=== PATIENT | female | born 1980 | race Asian ===

== ENCOUNTER → 2018-02-15 10:29 | Outpatient (CLI) | payer OTHER, SELFPAY ==
--- NOTE | 2018-02-15 10:32 | DI.US.S_ITS ---
PROCEDURE: US OB >= 14 WEEKS FETUS INDICATIONS: anatomy survey OUTSIDE/PRIOR DATING DATA: Last menstrual period (LMP): Unknown. LMP-based estimated date of delivery (LUIS): N./A.. First dating scan (date and location): 12/07/2017. Estimated date of delivery (LUIS) from first dating scan: 07/07/2018. TECHNIQUE: Real-time scanning was performed of the fetus, with image documentation and biometric measurements. Endovaginal scanning: Not required COMPARISON: [facility], , OB COMPLETE LESS THAN 14 WKS, 12/07/2017, 15:50. FINDINGS: General: A single living intrauterine gestation is present. Presentation: Vertex. Placenta: Placental position is anterior, without previa. Amniotic fluid index: 12.9 cm, normal range is 5-24 cm. heart rate: 155 beats per minute. Maternal cervical canal: 3.9 cm long. Normal lower limit is 2.5 cm. biometrics: Biparietal diameter: 19 weeks 4 days Head circumference: 19 weeks 3 days Abdominal circumference: 19 weeks 2 days Femur length: 19 weeks 4 days Estimated gestational age from initial scan: 19 weeks 5 days Composite gestational age from present scan: 19 weeks 3 days, normal growth Estimated weight and percentile: 292 g at the 30th percentile Measurement variability for biometric dating: +/- 7 days from 14 weeks to 15 weeks 6 days gestation, +/- 10 days from 16 weeks to 21 weeks 6 days gestation, +/- 2 weeks from 22 weeks to 27 weeks 6 days gestation, +/- 3 weeks for 28 weeks gestation or later. weight reference: 4500 g or EFW >90/95% is considered macrosomia or large for gestational age. EFW <10% is small for gestational age. EFW 5% or less is considered intra-uterine growth restriction. Anatomic survey: Neuro: Ventricles are non-dilated at less than 10 mm. Cisterna magna is normal at 3-11 mm. Cerebellum is normal in size and morphology. Nuchal skin fold: Normal at less than 6 mm between 14-21 weeks gestational age. Face: Nose and lips, facial profile are normal. Spine: No evidence for spina bifida. Heart: 4-chambered heart is present, with normal ventricular outflow tracts. There is question of dextrocardia. Calcifications are suggested at the level of the mitral annulus. Diaphragm: Diaphragm is intact. Stomach: Left-sided stomach is present. Kidneys: Mild hydronephrosis, 5 mm right and 6 mm left. Normal is less than 5 mm in 2nd trimester, less than 7 mm in 3rd trimester. Cord: 3-vessel cord has orthotopic insertion. Bladder: Normal in size. Extremities: All 4 extremities identified. IMPRESSION: 1. Single, live intrauterine gestation in Vertex lie showing composite gestational age of 19 weeks 3 days, normal growth. 2. Mild bilateral dilatation of the renal pelves, borderline at 5 mm on the right and slightly enlarged at 6 mm on the left. Follow up exam suggested. 3. Question of cardiac anomaly/abnormality for attention on follow up exam. Dictated by: Too Sousa M.D. on 02/15/2018 at 12:34 Approved by: Too Sousa M.D. on 02/15/2018 at 12:44
[2018-02-23 12:41] LABS: AFP, Serum 171.8 ng/mL; Brief History NOT GIVEN; Calc Gestational Age 20; Est Date Determined by US; Maternal Weight 129 lbs; Number of Fetuses 1; Prev Pregnancies Down Syndrome NOT GIVEN
== END ==
PROVIDERS: PCP Physician Assistant; Visit Provider Obstetrics & Gynecology
DX: Z34.92 Encounter for supervision of normal pregnancy, unspecified, second trimester (principal); Z3A.19 19 weeks gestation of pregnancy
CPT/HCPCS: 36415; 76811; 82105

== ENCOUNTER → 2018-03-31 15:31 | Outpatient (CLI) | payer OTHER, SELFPAY ==
[2018-03-31 17:51] LABS: Hematocrit 31.7 % (36-46); Hemoglobin 9.9 g/dL (12.0-16.0)
[2018-03-31 18:11] LABS: GTT (PREG) 1 Hour PP 50gm Dose 143 mg/dL (76-139)
== END ==
PROVIDERS: PCP Physician Assistant; Visit Provider Obstetrics & Gynecology
DX: Z31.82 Encounter for Rh incompatibility status (principal); Z34.82 Encounter for supervision of other normal pregnancy, second trimester
CPT/HCPCS: 82950; 85014; 85018

== ENCOUNTER → 2018-04-05 08:46 | Outpatient (CLI) | payer OTHER, SELFPAY ==
[2018-04-05 10:44] LABS: Glucose Fasting Gestational 74 mg/dL (76-95)
[2018-04-05 11:07] LABS: Glucose 1 Hour Gest 168 mg/dL (76-180)
[2018-04-05 12:16] LABS: Glucose Tol Interp,Gestational INTERPRETATION
[2018-04-05 12:46] LABS: Glucose 2 Hour Gest 145 mg/dL (76-155)
[2018-04-05 13:07] LABS: Glucose 3 Hour Gest 85 mg/dL (76-140)
== END ==
PROVIDERS: Visit Provider Obstetrics & Gynecology
DX: O99.810 Abnormal glucose complicating pregnancy (principal)
CPT/HCPCS: 36415; 82951; 82952

== ENCOUNTER 2018-04-06 22:00 | Outpatient (CLI) | payer OTHER, SELFPAY | END 2018-04-06 23:00 | disposition home or self-care (01) | LOC: LABOR 22:07 → OB 04-08 10:13 | PROVIDERS: PCP Physician Assistant; Visit Provider Obstetrics & Gynecology | DX: O13.2 Gestational [pregnancy-induced] hypertension without significant proteinuria, second trimester (principal); O46.92 Antepartum hemorrhage, unspecified, second trimester; Z3A.27 27 weeks gestation of pregnancy | CPT/HCPCS: G0378; G0379 ==

== ENCOUNTER → 2018-04-08 09:51 | Outpatient (CLI) | payer OTHER, SELFPAY | PROVIDERS: PCP Physician Assistant | DX: R31.9 Hematuria, unspecified (principal) | CPT/HCPCS: 87077; 87086 ==

== ENCOUNTER → 2018-04-08 09:59 | Outpatient (CLI) | payer OTHER, SELFPAY ==
[2018-04-08 10:02] LABS: Bacteria Urine None Seen; RBC Urine None Seen (0-5/HPF)
[2018-04-08 10:34] LABS: Appearance Urine UA CLEAR; Bilirubin Urine UA NEGATIVE (NEGATIVE); Color Urine UA YELLOW; Glucose Urine UA NEGATIVE (Normal); Ketones Urine UA NEGATIVE (NEGATIVE); Leukocyte Esterase Urine UA NEGATIVE (NEGATIVE); Nitrite Urine UA Negative (Negative); Occult Blood Urine UA TRACE-LYSED (Negative); Protein Urine UA 3+ (Negative); Specific Gravity Urine UA 1.015 (1.000-1.035); Urobilinogen Urine UA 0.2 E.U./dL (0.2); pH Urine UA 6.5 (4.5-8.0)
[2018-04-08 10:46] LABS: Culture Indicated Urine Cult Not Indicated; Mucus Urine 2+ (Negative); Squamous Epithelial Cell Urine 5-10 /HPF; WBC Urine 5-10/HPF (0-5/HPF)
== END ==
PROVIDERS: Visit Provider Obstetrics & Gynecology
DX: R31.9 Hematuria, unspecified (principal)
CPT/HCPCS: 81001; 87077; 87086; 87186

== ENCOUNTER 2018-04-11 15:35 | Observation (INO) | payer OTHER, SELFPAY ==
[2018-04-11 16:14] LABS: Add Manual Diff / Slide Review NO; Basophils Percent Auto 0.6 % (0-2); Eosinophils Percent Auto 0.8 % (2-4); Hematocrit 33.3 % (36-46); Hemoglobin 10.9 g/dL (12.0-16.0); Lymphocytes Percent Auto 25.1 % (25-40); Mean Corpuscular HGB Conc 32.6 % (30-36); Mean Corpuscular Hemoglobin 22.1 PG (26-34); Mean Corpuscular Volume 67.8 fL (80-100); Monocytes Percent Auto 4.8 % (3-14); Neutrophils Absolute Auto 7800 /uL (3000-5900); Neutrophils Percent Auto 68.7 % (50-75); Platelet Count 222 X10^3/uL (150-400); Red Blood Cell Count 4.91 X10^6/uL (4.0-5.2); Red Cell Distribution Width 17.3 % (11.6-14.8); White Blood Cell Count 11.4 X10^3/uL (4.5-11.0)
[2018-04-11 16:25] LABS: Alanine Aminotransferase 21 IU/L (9-52); Albumin Globulin Ratio 1.2 (1.0-2.8); Alkaline Phosphatase 137 U/L (38-126); Aspartate Aminotransferase 28 IU/L (14-36); BUN Creatinine Ratio 21.3 (6-22); Bilirubin Total 0.2 mg/dL (0.2-1.3); Blood Urea Nitrogen 17 mg/dL (7-17); Calcium 9.1 mg/dL (8.4-10.2); Carbon Dioxide 21 mmol/L (22-32); Chloride 107 mmol/L (98-107); Estimated Glomerular Filt Rate > 60.0 mL/min (>60); Globulin 2.6 g/dL (1.7-4.1); Glucose 87 mg/dL (70-100); HEMOLYSIS 24 (0-50); Potassium 4.5 mmol/L (3.4-5.1); Sodium 135 mmol/L (137-145); Total Protein 5.6 g/dL (6.3-8.2); Uric Acid 7.7 mg/dL (2.5-6.2)
[2018-04-11 17:15] LABS: Anisocytosis 1+; Hypochromasia 3+; Microcytosis 3+
[2018-04-11] MEDS: LABETALOL 100 MG/20ML MDV 20 MG IV ×3 (17:22→20:30)
--- NOTE | 2018-04-11 17:23 | PM.OBHP.1 ---
OB HPI Date/Time Date of admission: 04/11/18 Date Patient Seen: 04/11/18 Time Patient Seen: 17:23 History of Present Illness Chief complaint: OBSERVATION : 2 Para: 1 Estimated Date of Delivery: 07/06/18 Estimated Gestational Age (weeks): 27 5/7 Narrative: Halina Bynum is a 38 year old female 2 para 1 at 27 and 5 7th weeks gestation who presented to the office for blood pressure check Patient had a urine sent on Wednesday for UA C&S due to some pink tinge in her urine. When the urine returned today, there was 3+ protein in the urine. She came to the office and had a blood pressure of 198/134. She was sent to Labor and delivery for further blood pressure checks, labs, and monitoring. Evaluation Evaluation Baseline heart rate: 145 Variability: Average (6-10) monitor accelerations: Absent monitor decelerations: Variable Category of Tracing: II Laboratory results: Laboratory Tests 04/11/18 04/11/18 16:00 16:00 WBC 11.4 H RBC 4.91 Hgb 10.9 L Hct 33.3 L MCV 67.8 L MCH 22.1 L MCHC 32.6 RDW 17.3 H Plt Count 222 Neut % (Auto) 68.7 Lymph % (Auto) 25.1 [place] % (Auto) 4.8 Eos % (Auto) 0.8 L Baso % (Auto) 0.6 Neut # (Auto) 7800 H RBC Morphology Not Reportable Hypochromasia 3+ H Anisocytosis 1+ H Microcytosis 3+ H Sodium 135 L Potassium 4.5 Chloride 107 Carbon Dioxide 21 L BUN 17 Creatinine 0.80 Estimated GFR > 60.0 BUN/Creatinine Ratio 21.3 Glucose 87 Uric Acid 7.7 H Calcium 9.1 Total Bilirubin 0.2 Conjugated Bilirubin 0.0 Unconjugated Bilirubin 0.0 AST 28 ALT 21 Alkaline Phosphatase 137 H Total Protein 5.6 L Albumin 3.0 L Globulin 2.6 Albumin/Globulin Ratio 1.2 PFSH Medical History Hypertension (Acute) Surgical History No history of previous surgery (Resolved 05/21/16) Family History Mother No problems noted. Father No problems noted. Family/Other No problems noted. Meds Home Medications Medication Instructions Recorded Confirmed Type Gummy 2 ea/day PO DAILY 04/06/18 04/06/18 History Zantac 75 75 mg PO BID 04/06/18 04/06/18 History atenolol [Tenormin] 25 mg PO QDAY 04/06/18 04/06/18 History iron 325 mg PO DAILY 04/06/18 04/06/18 History Review of Systems Review of Systems No headache or blurred vision. Good movement. No vaginal bleeding or leakage of fluid. Exam Vital Signs (past 8 hours): Generally: A well-developed, well-nourished female, no acute distress HEENT: Clear disc margins. Lungs: Clear to auscultation bilaterally Cardiovascular: Regular rate and rhythm Abdomen: Fundal height: 28 cm Extremities: Negative Homans. 3+ DTRs. 1 beat of clonus no edema. Objective Labs Result Diagrams: 04/11/18 16:00 04/11/18 16:00 Labs: Laboratory Results - last 24 hr 04/11/18 04/11/18 16:00 16:00 WBC 11.4 H RBC 4.91 Hgb 10.9 L Hct 33.3 L MCV 67.8 L MCH 22.1 L MCHC 32.6 RDW 17.3 H Plt Count 222 Neut % (Auto) 68.7 Lymph % (Auto) 25.1 [place] % (Auto) 4.8 Eos % (Auto) 0.8 L Baso % (Auto) 0.6 Neut # (Auto) 7800 H RBC Morphology Not Reportable Hypochromasia 3+ H Anisocytosis 1+ H Microcytosis 3+ H Sodium 135 L Potassium 4.5 Chloride 107 Carbon Dioxide 21 L BUN 17 Creatinine 0.80 Estimated GFR > 60.0 BUN/Creatinine Ratio 21.3 Glucose 87 Uric Acid 7.7 H Calcium 9.1 Total Bilirubin 0.2 Conjugated Bilirubin 0.0 Unconjugated Bilirubin 0.0 AST 28 ALT 21 Alkaline Phosphatase 137 H Total Protein 5.6 L Albumin 3.0 L Globulin 2.6 Albumin/Globulin Ratio 1.2 Assessment and Plan (1) 27 weeks gestation of : Current visit: Yes Status: Acute Assessment: 38-year-old 2 para 1 at 27 and 5 7th weeks gestation with hypertension with superimposed preeclampsia Plan: Labetalol 20 mg IV x1 Magnesium sulfate 4 g IV load Magnesium sulfate 2 g maintenance Betamethasone 12 mg IM x1 Wick catheter placed Pulse oximetry Calcium gluconate for transport Discussed with Dr. Verdin at (2) Pre-eclampsia added to pre-existing hypertension: Current visit: Yes Status: Acute
[2018-04-11] MEDS: MAGNESIUM SULFATE 4 GM/100 ML PIGGYBACK IV (17:34)
[2018-04-11] MEDS: BETAMETHASONE 30 MG/5 ML MDV 12 MG IM (17:45)
[2018-04-11] MEDS: LABETALOL 20 MG/4 ML SYRINGE IV (17:53)
[2018-04-11 18:13] VITALS: BP 185/115
[2018-04-11] MEDS: HYDRALAZINE 20 MG/ML VIAL 5 MG IV ×2 (18:29→18:59)
[2018-04-11] MEDS: MAGNESIUM SULFATE 20 GM/500 ML IV.SOLN IV (18:39)
[2018-04-11 20:43] VITALS: BP 185/115; PULSE 108; RESP 18; TEMP 36.6
[2018-04-11 21:49] VITALS: BP 185/115; PULSE 108; RESP 18; TEMP 36.6
== END 2018-04-11 20:43 | disposition home or self-care (01) ==
LOC: LABOR 15:36
PROVIDERS: Admitting Provider Obstetrics & Gynecology; PCP Physician Assistant; Visit Provider Obstetrics & Gynecology
DX: O13.2 Gestational [pregnancy-induced] hypertension without significant proteinuria, second trimester (principal); Z3A.27 27 weeks gestation of pregnancy
CPT/HCPCS: 36415; 59025; 59050; 80053; 80076; 84550; 85025; 96360; 96372; G0378; G0379; J0360; J0702; J3475

== ENCOUNTER 2019-10-05 18:13 | Emergency (ER) | payer OTHER, SELFPAY ==
[2019-10-05 18:22] VITALS: BP 164/119; PULSE 127; RESP 25; TEMP 37; O2SAT 100; BMI 25.2
--- NOTE | 2019-10-05 18:25 | ED_ITS ---
HPI - Chest Pain General Chief Complaint: Chest Pain Stated Complaint: chest pains/ sob Time Seen by Provider: 10/05/19 18:21 Source: patient Mode of arrival: Ambulatory Limitations: no limitations History of Present Illness HPI narrative: 39-year-old female here for evaluation of chest pressure. She states that it started just after noon today. States that was a fairly sudden onset. Some shortness of breath associated with it. Only new exposures that she has been taking diet pills since Wednesday. She does not feel like her heart is beating fast. Her chest pressure is not worse with palpation or movement or breathing. She does have a history of anxiety but feels like that this is not an anxiety attack. Related Data Home Medications Medication Instructions Recorded Confirmed Gummy 2 ea/day PO DAILY 04/06/18 07/14/18 nifedipine 30 mg tablet,extended 30 mg PO BID tab 06/15/18 07/14/18 release Previous Rx's Medication Instructions Recorded hydrocortisone 1 % topical cream 1 applic TOP BID-QID PRN #30 gram 07/14/18 Allergies Allergy/AdvReac Type Severity Reaction Status Date / Time No Known Drug Allergies Allergy Verified 10/05/19 18:25 Review of Systems Constitutional Constitutional: Denies fever(s) and Denies headache(s) ENT Ears, Nose, Mouth, and Throat: Denies headache(s) Cardiovascular Cardiovascular: Reports chest pain, Denies syncope, Denies rapid heart rate, Denies palpitations and Denies dyspnea Respiratory Respiratory: Denies dyspnea Gastrointestinal Gastrointestinal: Denies abdominal pain, Denies nausea and Denies vomiting Genitourinary Genitourinary: Denies dysuria Musculoskeletal Musculoskeletal: Denies myalgias and Denies arthralgias Integumentary/Breasts Skin/Breast: Denies lesions and Denies rash Neurologic Neurologic: Denies behavioral changes, Denies syncope and Denies headache(s) Psychiatric Psychiatric: Denies behavioral changes Endocrine Endocrine: Denies palpitations Hematologic/Lymphatic Hematologic/Lymphatic: Denies easy bleeding and Denies easy bruising Patient History Medical History Hypertension (Acute) Surgical History (Updated 03/15/18 @ 10:58 by Ariadne Sultana) No history of previous surgery (Resolved 05/21/16) Family History Mother No problems noted. Father No problems noted. Family/Other No problems noted. Social History Smoking Status: Never smoker Smoking Status: Never smoker alcohol intake frequency: a few times a week Substance Use Type: does not use Exam Initial Vital Signs Initial Vital Signs: Vital Signs Temperature 98.6 F 10/05/19 18:22 Pulse Rate 127 H 10/05/19 18:22 Respiratory Rate 25 H 10/05/19 18:22 Blood Pressure 164/119 H 10/05/19 18:22 Pulse Oximetry 100 10/05/19 18:22 Const General: cooperative, healthy appearing and comfortable Limitations: mental status not altered HENMT Head: normal to inspection and normocephalic Resp Effort & Inspection: normal respiratory effort Auscultation: clear to auscultation bilaterally Cardio Rate: tachycardic Rhythm: regular rhythm Pulses: radial pulses present GI Inspection: non-distended Palpation: soft and No firm Skin Lesions: no lesions Rashes: no rashes Neuro General: alert, awake and oriented x3 Cognition: normal cognition Speech: speech normal Motor: muscle tone normal throughout Extrem General: normal to inspection and capillary refill normal Psych Appearance: grossly normal and well kempt Scores GCS [place] coma scale eye opening: Spontaneous [place] coma scale verbal response: Orientated Felice coma scale motor response: Obey commands [place] coma scale total score: 15 HEART Score Heart Score history: Slightly Suspicious Heart Score EKG: Normal Heart Score Age: < 45 years old Heart Score risk factors: 1-2 risk factors Heart Score troponin: < or = to normal limit Heart Score Total: 1 PERC Score Age greater than or equal to 50 years: No Heart rate greater than or equal to 100 bpm: Yes Room Air O2 Sat less than 95%: No Unilateral leg swelling: No Recent trauma or surgery: No Hemoptysis: No Prior PE or DVT: No Hormone Use: Yes Total PERC Score: 2 Course Orders Ordered: ED Orders 10/05/19 18:23 XR chest 1V Stat EKG-12 Lead Stat 10/05/19 18:28 B Type Natriuretic Peptide Stat Complete Blood Count AUTO DIFF Stat Comprehensive Metabolic Panel Stat D Dimer Stat Lipase Stat Test Serum,Qual Stat Thyroid Stimulating Hormone Stat Troponin I Stat Discontinued Medications Lorazepam (Ativan) 1 mg IV NOW ONE Stop: 10/05/19 18:46 Last Admin: 01/09/20 18:57 Dose: 1 mg Documented by: ELISE Vital Signs Vital signs: Vital Signs - 8 hr 10/05/19 18:22 10/05/19 19:00 10/05/19 19:10 Temperature 98.6 F Pulse Rate 127 H 112 H 107 H Respiratory Rate 25 H 19 16 Blood Pressure 164/119 H Blood Pressure [Right Arm] 150/114 H Pulse Oximetry 100 100 10/05/19 19:53 Temperature Pulse Rate 110 H Respiratory Rate 20 Blood Pressure Blood Pressure [Right Arm] 162/135 H Pulse Oximetry 99 MDM - Chest Pain Lab Data Attestation: I reviewed the patient's lab results. Result diagrams: 10/05/19 18:28 10/05/19 18:28 Labs: Lab Results 10/05/19 10/05/19 10/05/19 Range/Units 18:28 18:28 18:28 WBC 7.6 (4.5-11.0) X10^3/uL RBC 6.25 H (4.0-5.2) X10^6/uL Hgb 12.9 (12.0-16.0) g/dL Hct 40.2 (36-46) % MCV 64.3 L (80-100) fL MCH 20.6 L (26-34) PG MCHC 32.0 (30-36) % RDW 16.6 H (11.6-14.8) % Plt Count 343 (150-400) X10^3/uL Neut % (Auto) 54.3 (50-75) % Lymph % (Auto) 38.0 (25-40) % [place] % (Auto) 6.4 (3-14) % Eos % (Auto) 0.8 L (2-4) % Baso % (Auto) 0.5 (0-2) % Neut # (Auto) 4200 (9456-1953) /uL Lymph # (Auto) 2900 (1629-1612) /uL [place] # (Auto) 500 (0-900) /uL Eos # (Auto) 100 (0-450) /uL Baso # (Auto) 0 (0-100) /uL RBC Morphology See below Hypochromasia 1+ H Microcytosis 1+ H D-Dimer < 200 (<230) ng/mL Sodium (137-145) mmol/L Potassium (3.4-5.1) mmol/L Chloride (98-107) mmol/L Carbon Dioxide (22-32) mmol/L BUN (7-17) mg/dL Creatinine (0.52-1.04) mg/dL Estimated GFR (>60) mL/min BUN/Creatinine Ratio (6-22) Glucose (70-100) mg/dL Calcium (8.4-10.2) mg/dL Total Bilirubin (0.2-1.3) mg/dL AST (14-36) IU/L ALT (<35) IU/L Alkaline Phosphatase (38-126) U/L Troponin I (0.01-0.034) ng/mL B-Natriuretic Peptide < 100 (<100) Total Protein (6.3-8.2) g/dL Albumin (3.5-5.0) g/dL Globulin (1.7-4.1) g/dL Albumin/Globulin Ratio (1.0-2.8) Lipase (23-300) U/L TSH (0.47-4.68) uIU/mL Serum , Qual (Negative) 10/05/19 10/05/19 10/05/19 Range/Units 18:28 18:28 18:28 WBC (4.5-11.0) X10^3/uL RBC (4.0-5.2) X10^6/uL Hgb (12.0-16.0) g/dL Hct (36-46) % MCV (80-100) fL MCH (26-34) PG MCHC (30-36) % RDW (11.6-14.8) % Plt Count (150-400) X10^3/uL Neut % (Auto) (50-75) % Lymph % (Auto) (25-40) % [place] % (Auto) (3-14) % Eos % (Auto) (2-4) % Baso % (Auto) (0-2) % Neut # (Auto) (0664-1815) /uL Lymph # (Auto) (7731-0016) /uL [place] # (Auto) (0-900) /uL Eos # (Auto) (0-450) /uL Baso # (Auto) (0-100) /uL RBC Morphology Hypochromasia Microcytosis D-Dimer (<230) ng/mL Sodium 138 (137-145) mmol/L Potassium 4.3 (3.4-5.1) mmol/L Chloride 105 (98-107) mmol/L Carbon Dioxide 21 L (22-32) mmol/L BUN 21 H (7-17) mg/dL Creatinine 0.80 (0.52-1.04) mg/dL Estimated GFR > 60.0 (>60) mL/min BUN/Creatinine Ratio 26.3 H (6-22) Glucose 113 H (70-100) mg/dL Calcium 9.9 (8.4-10.2) mg/dL Total Bilirubin 0.4 (0.2-1.3) mg/dL AST 31 (14-36) IU/L ALT 20 (<35) IU/L Alkaline Phosphatase 74 (38-126) U/L Troponin I < 0.012 (0.01-0.034) ng/mL B-Natriuretic Peptide (<100) Total Protein 8.4 H (6.3-8.2) g/dL Albumin 5.0 (3.5-5.0) g/dL Globulin 3.4 (1.7-4.1) g/dL Albumin/Globulin Ratio 1.5 (1.0-2.8) Lipase 245 (23-300) U/L TSH 2.16 (0.47-4.68) uIU/mL Serum , Qual Negative (Negative) Imaging Data Chest x-ray: Radiologist's Impression: [place] [address] XRay Report Signed Patient: Halina Bynum [facility]#: [id number] : 1980Acct:[id number] Age/Sex: 39 / FDate of Service: 10/05/19 Loc: ED Accession Number: [id number] Procedure: XR chest 1V Ordering Provider: Chao Sultana D.O. PROCEDURE: XR CHEST 1V INDICATIONS: chest pain TECHNIQUE: One view of the chest was acquired. COMPARISON: None. FINDINGS: Surgical changes and devices: None. Lungs and pleura: Lungs are clear. No pleural effusions or pneumothorax. Mediastinum: Mediastinal contours appear normal. Heart size is normal. Bones and chest wall: No suspicious bony lesions. Overlying soft tissues appear unremarkable. IMPRESSION: No acute cardiopulmonary disease. Dictated by: Jenna Starr M.D. on 10/05/2019 at 19:18 Approved by: Jenna Starr M.D. on 10/05/2019 at 19:18 ECG Data Attestation: I personally reviewed and interpreted this ECG as follows: Prior ECG tracings: not available for review Interpretation: Sinus tachycardia Ventricular rate 125 Normal QRS Normal QTC Nonspecific ST T wave changes MDM Narrative Medical decision making narrative: EKG is unremarkable, low risk heart score, D- dimer negative, chest x-ray is unremarkable. Low suspicion for ACS. I do suspect that her tachycardia is related to the diet pills she is taking. She seems to be asymptomatic with regard to this. I feel that her heart rate probably has been elevated for the past several days since taking this supplement. I did advise her that she should stop taking this. We will hold on further workup for now. Patient is stable. She was given return precautions and follow-up instructions. She expressed understanding and agreement with plan. Discharge Plan Departure Patient Disposition: Home Clinical Impression: Atypical chest pain, Tachycardia Hypertension Qualifiers: Hypertension type: unspecified Qualified Code(s): I10 - Essential (primary) hypertension Instructions: DI for Atypical Chest Pain Activity Restrictions/Additional Instructions: Continue to take your blood pressure medication. I do recommend that you stop taking the diet pills as this is most likely the cause of your elevated heart rate today. Recommend you contact your primary provider for follow-up. Return to the emergency department for any new or worsening symptoms Prescriptions: No Action hydrocortisone 1 % cream 1 applic TOP BID-QID PRN (Reason: rash) Qty: 30 RF: 0 nifedipine 30 mg tablet extended release 30 mg PO BID RF: 0 Gummy 2 ea/day PO DAILY RF: 0 Referrals: Lynne Pandey ARNP [Primary Care Provider] -
[2019-10-05 18:56] LABS: Add Manual Diff / Slide Review NO; Basophils Absolute Auto 0 /uL (0-100); Basophils Percent Auto 0.5 % (0-2); Eosinophils Absolute Auto 100 /uL (0-450); Eosinophils Percent Auto 0.8 % (2-4); Hematocrit 40.2 % (36-46); Hemoglobin 12.9 g/dL (12.0-16.0); Lymphocytes Absolute Auto 2900 /uL (1100-4500); Mean Corpuscular Hemoglobin 20.6 PG (26-34); Mean Corpuscular Volume 64.3 fL (80-100); Monocytes Absolute Auto 500 /uL (0-900); Monocytes Percent Auto 6.4 % (3-14); Neutrophils Absolute Auto 4200 /uL (1500-7000); Neutrophils Percent Auto 54.3 % (50-75); Platelet Count 343 X10^3/uL (150-400); Red Blood Cell Count 6.25 X10^6/uL (4.0-5.2); Red Cell Distribution Width 16.6 % (11.6-14.8); White Blood Cell Count 7.6 X10^3/uL (4.5-11.0)
[2019-10-05] MEDS: LORazepam 2 MG/ML INJ 1 MG IV (18:57)
[2019-10-05 18:58] LABS: Alanine Aminotransferase 20 IU/L (<35); Albumin Globulin Ratio 1.5 (1.0-2.8); Alkaline Phosphatase 74 U/L (38-126); Aspartate Aminotransferase 31 IU/L (14-36); BUN Creatinine Ratio 26.3 (6-22); Bilirubin Total 0.4 mg/dL (0.2-1.3); Blood Urea Nitrogen 21 mg/dL (7-17); Calcium 9.9 mg/dL (8.4-10.2); Carbon Dioxide 21 mmol/L (22-32); Chloride 105 mmol/L (98-107); Estimated Glomerular Filt Rate > 60.0 mL/min (>60); Globulin 3.4 g/dL (1.7-4.1); Glucose 113 mg/dL (70-100); HEMOLYSIS 27 (0-50); Lipase 245 U/L (23-300); Potassium 4.3 mmol/L (3.4-5.1); Sodium 138 mmol/L (137-145); Total Protein 8.4 g/dL (6.3-8.2)
[2019-10-05 19:00] VITALS: PULSE 112; RESP 19
[2019-10-05 19:07] LABS: Pregnancy Test Serum,Qual Negative (Negative)
[2019-10-05 19:10] VITALS: BP 150/114; PULSE 107; RESP 16; O2SAT 100
[2019-10-05 19:10] LABS: Troponin I < 0.012 ng/mL (0.01-0.034)
[2019-10-05 19:13] LABS: D Dimer < 200 ng/mL (<230)
[2019-10-05 19:15] LABS: Hypochromasia 1+; Microcytosis 1+
[2019-10-05 19:18] LABS: B Type Natriuretic Peptide < 100 (<100)
[2019-10-05 19:39] LABS: Thyroid Stimulating Hormone 2.16 uIU/mL (0.47-4.68)
[2019-10-05 19:53] VITALS: BP 162/135; PULSE 110; RESP 20; O2SAT 99
[2019-10-05 20:15] VITALS: BP 159/111; PULSE 109; RESP 18; O2SAT 100
== END 2019-10-05 20:15 | disposition home or self-care (01) ==
PROVIDERS: Emergency Provider Emergency Medicine; PCP Nurse Practitioner Family
DX: R07.89 Other chest pain (principal); R00.0 Tachycardia, unspecified; I10 Essential (primary) hypertension
CPT/HCPCS: 71045; 80053; 83690; 83880; 84443; 84484; 84703; 85025; 85379; 93005; 96374; 99284; 99285; J2060

== ENCOUNTER → 2020-11-11 12:46 | Outpatient (CLI) | payer OTHER, SELFPAY ==
--- NOTE | 2020-11-11 | DI.US.S_ITS ---
PROCEDURE: US PELVIC COMPLETE INDICATIONS: TENDERNESS AT C-SEC SCAR TECHNIQUE: Real-time scanning was performed of the pelvic organs, with image documentation. Additional endovaginal scanning was necessary due to incomplete visualization of the adnexal and endometrial structures by transabdominal scanning. COMPARISON: [facility], US, PELVIC COMPLETE, 08/03/2014, 10:34. [facility], US, PELVIC COMPLETE, 06/13/2013, 17:01. FINDINGS: Uterus: Uterus is normal in size at 3.1 x 5.0 x 7.4 cm, retroverted. The endometrium measures 1.1 mm in combined thickness. Ovaries: Normal measuring 2.8 x 1.8 x 1.3 cm on the right and 4.3 x 1.7 x 1.9 cm on the left. There is an anechoic cyst measuring 2 cm in maximal dimension at the left ovary. Other: No pathologic free abdominal or pelvic fluid. IMPRESSION: Retroverted uterus appears normal. Source of tenderness since is not seen. Normal appearing ovaries bilaterally with an incidentally noted simple left ovarian cyst measuring only 2 cm in dimension. >> Dictated by: Shiva Rivera M.D. on 11/11/2020 at 16:35 Approved by: Shiva Rivera M.D. on 11/11/2020 at 16:36
--- NOTE | 2020-11-11 | DI.US.S_ITS ---
PROCEDURE: US ABDOMEN COMPLETE INDICATIONS: GENERALIZED ABDOMINAL PAIN TECHNIQUE: Real-time scanning was performed of the abdominal and retroperitoneal organs, with image documentation. COMPARISON: None. FINDINGS: Liver: Liver is normal in size and homogeneous in echotexture. Gallbladder: The gallbladder appears normal Biliary ducts: Intrahepatic bile ducts are non-dilated. Extrahepatic bile duct caliber measures 3.1 mm. Normal is 6-7 mm or less in diameter, or 10 mm or less post-cholecystectomy. Pancreas: Visualized portions of the pancreas are sonographically normal. Spleen: Spleen is normal in size and homogeneous in echotexture. Kidneys: Kidneys are normal in size and echotexture. Right kidney measures 9.3 cm long; left kidney measures 9.9 cm long. No hydronephrosis or nephrolithiasis. No solid masses. Aorta: Visualized aorta is normal in caliber at less than 3 cm. Iliacs: Proximal common iliac arteries are normal in caliber at less than 2.5 cm. IVC: Intrahepatic inferior vena cava is patent. Miscellaneous: No free abdominal fluid. IMPRESSION: No source of current abdominal pain is found. The study appears normal for age. Dictated by: Shiva Rivera M.D. on 11/11/2020 at 16:11 Approved by: Shiva Rivera M.D. on 11/11/2020 at 16:12
== END ==
PROVIDERS: PCP Internal Medicine; Referring Provider Internal Medicine; Visit Provider Internal Medicine
DX: R10.84 Generalized abdominal pain (principal); R10.9 Unspecified abdominal pain; L90.5 Scar conditions and fibrosis of skin
CPT/HCPCS: 76700; 76830; 76856

== ENCOUNTER → 2021-11-10 09:29 | Outpatient (CLI) | payer OTHER, SELFPAY ==
--- NOTE | 2021-11-10 | DI.RAD.S_ITS ---
PROCEDURE: XR ANKLE LT MIN 3V INDICATIONS: LEFT ANKLE PAIN TECHNIQUE: 3 views of the ankle were acquired. COMPARISON: None. FINDINGS: Bones: No fractures or dislocations. Ankle mortise is normally aligned. No suspicious bony lesions. Soft tissues: No tibiotalar joint effusion. Achilles tendon appears normal. IMPRESSION: No acute osseous abnormality. Dictated by: Delroy Dick M.D. on 11/10/2021 at 11:54 Approved by: Delroy Dick M.D. on 11/10/2021 at 11:55
== END ==
PROVIDERS: PCP Internal Medicine; Referring Provider Internal Medicine; Visit Provider Internal Medicine
DX: M25.572 Pain in left ankle and joints of left foot (principal)
CPT/HCPCS: 73610

== ENCOUNTER → 2021-11-17 11:58 | Outpatient (CLI) | payer OTHER, SELFPAY ==
--- NOTE | 2021-11-17 | DI.US.S_ITS ---
LIMITED ULTRASOUND OF RIGHT BREAST: 11/17/2021 CLINICAL: Palpable right breast lump. Comparison is made to exam dated: 11/17/2021 [facility]. Color flow and real-time ultrasound of the right breast were performed. Saleh scale images of the real-time examination were reviewed. No significant abnormalities were seen sonographically in the right breast. IMPRESSION: NEGATIVE There is no sonographic evidence of malignancy. A 1 year screening mammogram is recommended. This exam was interpreted at Station ID: [id number]. Electronically Signed By: Cuauhtemoc Dugan M.D., jr/kirby:11/17/2021 13:58:17 letter sent: Normal Exam Ultrasound BI-RADS: 1 Negative
--- NOTE | 2021-11-17 | DI.MG.S_ITS ---
BILATERAL DIGITAL DIAGNOSTIC MAMMOGRAM 3D/2D: 11/17/2021 CLINICAL: Baseline. Right breast mass. No prior exams were available for comparison. The tissue of both breasts is heterogeneously dense. This may lower the sensitivity of mammography. No significant masses, calcifications, or other findings are seen in either breast. IMPRESSION: INCOMPLETE: NEEDS ADDITIONAL IMAGING EVALUATION There is no mammographic evidence of malignancy or mass at the palpable area of concern. A targeted ultrasound of the repotedly palpable area will be performed next. This exam was interpreted at Station ID: [id number]. NOTE: For mammograms, a report in lay terms will be sent to the patient. Approximately 15% of breast malignancies will not be visualized mammographically. In the management of a palpable breast mass, a negative mammogram must not discourage biopsy of a clinically suspicious lesion. Electronically Signed By: Cuauhtemoc Dugan M.D. jr/:11/18/2021 10:30:21 ACR BI-RADS Category 0: Incomplete [id number]
== END ==
PROVIDERS: PCP Internal Medicine; Referring Provider Internal Medicine; Visit Provider Internal Medicine
DX: N63.10 Unspecified lump in the right breast, unspecified quadrant (principal); R92.2 Inconclusive mammogram
CPT/HCPCS: 76642; 77066; G0279

== ENCOUNTER → 2025-09-26 08:21 | Outpatient (CLI) | payer OTHER, SELFPAY ==
--- NOTE | 2025-09-26 08:23 | DI.MG.S_ITS ---
MM screening mammo BI: 09/26/2025. BI-RADS: 1 CLINICAL: 45-year old female for bilateral screening mammogram. Tyrer-Cuzick lifetime risk of 9.1%. No personal or first-degree family history of breast cancer. PRIOR EXAMS 11/17/2021. MAMMOGRAPHY TECHNIQUE: 2D and 3D (tomosynthesis) digital mammographic views obtained, with additional images as needed for full coverage. Current study was also evaluated with a Computer Aided Detection (CAD) system. DENSITY C. The breasts are heterogeneously dense, which may obscure small masses. MAMMOGRAPHY FINDINGS Bilateral: No suspicious mass, asymmetry, microcalcification, or other abnormality seen. IMPRESSION: * No evidence of malignancy. RECOMMENDATIONS Bilateral * Annual screening mammography. OVERALL ASSESSMENT CATEGORY BI-RADS-1: Negative. The [employer] recommends annual screening mammography beginning at age 40 for women with average risk of breast cancer. ELECTRONICALLY SIGNED: Saumya Soria M.D. on 09/26/2025 at 05:00:52 PM PT Interpreting Station ID: [id number]
== END ==
PROVIDERS: PCP Registered Nurse; Referring Provider Registered Nurse; Visit Provider Registered Nurse
DX: Z12.31 Encounter for screening mammogram for malignant neoplasm of breast (principal); R92.333 Mammographic heterogeneous density, bilateral breasts
CPT/HCPCS: 77063; 77067